=== PATIENT | female | born 1945 | race Caucasian/White ===

== ENCOUNTER → 2020-10-24 15:44 | Outpatient (CLI) | payer OTHER, SELFPAY ==
--- NOTE | 2020-10-24 15:51 | DI.MRI.S_ITS ---
PROCEDURE: MR LOWER LEG RT WO CON INDICATIONS: Strain of other muscle(s) and tendon(s) TECHNIQUE: Noncontrast coronal and sagittal T1 spin echo and STIR; axial T1 spin echo and T2 fast spin echo with fat saturation through the right tibia and fibula COMPARISON: None. FINDINGS: Image quality: Excellent. Bones: The visualized bone marrow demonstrates normal overall signal. There is bone marrow edema within the medial tibia proximally including involvement of the medial tibial plateau. There is an associated small low signal intensity line along the anterior aspect of the medial tibial plateau suggestive of a nondisplaced fracture. Mild subchondral cystic changes are also demonstrated within the medial compartment of the right knee secondary to moderate osteoarthritic changes. There is osteophytosis noted. Within the visualized left knee, there are also osteoarthritic changes with mild subchondral edema. There is tearing of the medial meniscus noted in the knees bilaterally, with evaluation limited on the current study due to the large field of view. The remainder of the right tibia as well as the right fibula appear intact. Soft tissues: There is severe tendinosis of the Achilles tendon with severe partial thickness tearing just distal to the myotendinous junction, approximately 6.7 cm from its insertion. There are intact appearing residual fibers with mild retraction of the torn fibers. Associated peritendinous fluid and edema are present along the tear extending proximally to the myotendinous junction. There is also intramuscular edema with a small amount of fluid tracking along the muscles of the posterior compartment primarily involving the gastrocnemius and soleus muscles consistent with associated muscle strains. IMPRESSION: 1. Severe tendinosis of the Achilles tendon with severe partial thickness tearing just distal to the myotendinous junction. There are intact appearing residual fibers. 2. Edema within the posterior compartment of the right lower leg primarily involving the soleus and gastrocnemius muscles consistent with associated muscle strains. 3. Edema within the proximal medial tibia including the medial tibial plateau with a suspected nondisplaced fracture. Further evaluation may be obtained with a dedicated knee MRI if clinically indicated. Dictated by: Darvin Quiroz M.D. on 10/25/2020 at 8:28 Approved by: Darvin Quiroz M.D. on 10/25/2020 at 8:40
== END ==
PROVIDERS: Referring Provider Physician Assistant Medical; Visit Provider Physician Assistant Medical
DX: S86.811A Strain of other muscle(s) and tendon(s) at lower leg level, right leg, initial encounter (principal); S86.011A Strain of right Achilles tendon, initial encounter; M25.461 Effusion, right knee; M25.471 Effusion, right ankle
CPT/HCPCS: 73718

== ENCOUNTER → 2024-10-18 12:11 | Outpatient (CLI) | payer OTHER, SELFPAY ==
--- NOTE | 2024-10-18 12:13 | DI.US.S_ITS ---
PROCEDURE: US THYROID INDICATIONS: nodule TECHNIQUE: Real-time scanning was performed of the thyroid gland, with image documentation. COMPARISON: None. FINDINGS: Thyroid: Right lobe measures 5.1 x 2.2 x 2.2 cm. Left lobe measures 4.3 x 1.2 x 1.6 cm. Isthmus is 0.4 cm thick. Echotexture is heterogeneous. Nodule number: 1 Location: Right lobe Size: 4.0 x 2.7 x 1.4 cm. Composition: Solid Echogenicity: Isoechoic Shape: wider than tall. Margins: Smooth Echogenic foci: Macro calcifications Total points: 4 ACR TI-RADS category: 4, moderately suspicious 8 mm left thyroid lobe nodule. IMPRESSION: Right thyroid lobe nodule qualifies for fine-needle aspiration. ACR TI-RADS definitions and recommendations: TI-RADS 1 (benign): 0 points. FNA not needed. TI-RADS 2 (not suspicious): 2 points. FNA not needed. TI-RADS 3: 3 points. * FNA if 2.5 cm or larger, follow up if 1.5 cm or larger (at 1, 3, and 5 years). TI-RADS 4: 4-6 points. * FNA if 1.5 cm or larger, follow up if 1 cm or larger (at 1, 2, 3, and 5 years). TI-RADS 5: 7 points or more. * FNA if 1 cm or larger, follow up if 0.5 cm or larger (every year for 5 years). Dictated by: Edvin Saucedo M.D. on 10/18/2024 at 15:19 Approved by: Edvin Saucedo M.D. on 10/18/2024 at 15:23
== END ==
PROVIDERS: Referring Provider Internal Medicine Endocrinology, Diabetes & Metabolism; Visit Provider Internal Medicine Endocrinology, Diabetes & Metabolism
DX: E04.1 Nontoxic single thyroid nodule (principal)
CPT/HCPCS: 76536